=== PATIENT | female | born 1995 | race Caucasian/White ===

== ENCOUNTER 2023-12-22 15:27 | Emergency (ER) | payer BC, SELFPAY ==
[2023-12-22 15:31] VITALS: BP 126/77; PULSE 89; RESP 18; TEMP 36.5; O2SAT 98; BMI 26.5
[2023-12-22 15:44] LABS: Appearance Urine Cloudy (Clear); Bilirubin Urine Negative (Negative); Blood Urine 3+ (Negative); Color Urine Yellow (Yellow); Glucose Urine Negative (Negative); Ketones Urine Trace (Negative); Leukocyte Esterase Urine 3+ (Negative); Nitrite Urine Negative (Negative); Protein Urine 2+ (Negative); Specific Gravity Urine 1.015 (1.000-1.030); Urobilinogen Urine 0.2 (0.2-1.0)
[2023-12-22 15:54] LABS: Bacteria Urine Moderate; RBC Urine 25-50 (0-2); Squamous Epithelial Cell Urine Few (None-Few); WBC Urine 25-50 (0-5)
[2023-12-22 15:56] LABS: Ur HCG Qualitative* Negative (Negative)
[2023-12-22] MEDS: KETOROLAC 15 MG/ML inj IVP (16:58)
[2023-12-22] MEDS: cefTRIAXone 1 GM in 0.9 % SODIUM CHLORIDE Mini-bag 100 ML IVPB (16:59)
[2023-12-22 17:04] LABS: Basophils Absolute Auto 0.03 K/uL (0.00-0.30); Basophils Percent Auto 0.3 % (0.0-3.0); Eosinophils Absolute Auto 0.05 K/uL (0.00-0.50); Eosinophils Percent Auto 0.5 % (0.0-7.0); Hematocrit 44.8 % (33.0-51.0); Hemoglobin* 14.7 gm/dL (12.0-16.0); Immature Granulocytes Abs Auto 0.01 K/uL (0.00-0.30); Immature Granulocytes Pct Auto 0.1 %; Mean Corpuscular HGB Conc 33 gm/dL (32-36); Mean Corpuscular Hemoglobin 30 pg (26-34); Mean Corpuscular Volume 93 fL (80-100); Monocytes Percent Auto 7.8 % (0.0-11.0); Neutrophils Percent Auto 78.3 % (42.0-72.0); Platelet Count* 226 K/uL (140-440); RDW Coefficient of Variation % 12.2 % (11.5-15.5); Red Blood Count 4.83 m/uL (4.00-5.20); White Blood Count* 10.22 K/uL (4.50-11.00)
[2023-12-22 17:05] VITALS: BP 107/63; PULSE 95; O2SAT 98
[2023-12-22 17:06] LABS: Slide Review Reflex No
[2023-12-22 17:15] LABS: Chloride* 100 mmol/L (96-114); Sodium* 139 mmol/L (135-149)
[2023-12-22 17:16] LABS: Potassium* 3.8 mmol/L (3.6-5.1)
[2023-12-22 17:18] LABS: Creatinine* 0.8 mg/dL (0.5-1.5); Est. Creatinine Clearance* 114.93; Estimated Glomerular Filt Rate 102 ml/min
[2023-12-22 17:19] LABS: Anion Gap 16 mEq/L (7-15); Blood Urea Nitrogen* 12 mg/dL (5-24); Calcium* 9.9 mg/dL (8.4-10.6); Carbon Dioxide* 23 mmol/L (20-32); Glucose* 98 mg/dL (60-115)
--- OUTSIDE RECORDS SUMMARY | 2023-12-22 17:20 | XMS_ITS | Clinical Summary ---
Author Name Unknown Organization [employer] Address [place], [place] [address] Care Team Providers Care Personal Lines Agent Name Role Phone Sander Diamond MD Primary Care Provider [phone] Allergies No known active allergies Medications Medication Sig Dispensed Refills Start Date End Date Status sertraline (ZOLOFT) 100 mg tabletIndications:A nxiety Take 1 Tablet (100 mg) by mouth once daily. 90 Tablet 3 12/12/2022 Active norgestrel-ethinyl estradiol, 0.3-30 mg-mcg, (Low-Ogestrel) 0.3-30 mg-mcg tabletIndications:U ses contraception TAKE 1 TABLET BY MOUTH EVERY DAY 84 Tablet 0 11/26/2023 Active norgestrel-ethinyl estradiol, 0.3-30 mg-mcg, (Low-Ogestrel) 0.3-30 mg-mcg tabletIndications:U ses contraception Take 1 Tablet by mouth once daily. 84 Tablet 3 12/12/2022 11/26/2023 Discontinued Active Problems Problem Noted Date Diagnosed Date Pap smear for cervical cancer screening 12/29/19 23 Overview: 11/2022 NIL/HPV Negative Plan: Pap and HPV due 11/2027 Resolved Problems Problem Noted Date Diagnosed Date Resolved Date Supervision of normal first , antepartum 08/27/2017 03/25/2018 Overview: Estimated Date of Delivery: 01/31/18 Patient's last menstrual period was 04/26/2017 (exact date). Last Tdap- 12/07/2017 Last Flu vaccine- 08/27/17 No Known Allergies Obstetric History T0 L0 SAB0 TAB0 Ectopic0 Multiple0 Live Births0 # Outcome Date GA Lbr Franc/2nd Weight Sex Delivery Anes PTL Lv 1 Current Component Latest Ref Rng & Units 06/18/2017 06/18/2017 06/18/2017 8:48 AM 8:48 AM 8:48 AM COLOR Yellow Color CLARITY Clear Clarity SPECIFIC GRAVITY,URINE 1.010, 1.015, 1.020, 1.025 PH,URINE 6.0, 7.0, 8.0, 5.5, 6.5, 7.5, 8.5 UROBILINOGEN,QUALITATIVE Normal EU/dl PROTEIN, URINE Negative mg/dL GLUCOSE, URINE Negative mg/dL KETONES,URINE Negative mg/dL BILIRUBIN,URINE Negative OCCULT BLOOD,URINE Negative NITRITE Negative LEUKOCYTE ESTERASE Negative ANTIBODY SCREEN Negative Negative SPECIMEN EXPIRATION DATE/TIME 06/21/17 23:59 HEMOGLOBIN 12.0 - 16.0 g/dL 12.5 MCV 80 - 100 fL 93 RUBELLA IGG ANTIBODY Positive 2.61 HEMOGLOBIN A1C SCREENING <6.4 % 5.2 ABORH O Rh Positive TREPONEMA PALLIDUM Negative Negative Culture Component Latest Ref Rng & Units 06/18/2017 8:50 AM COLOR Yellow Color Yellow CLARITY Clear Clarity Clear SPECIFIC GRAVITY,URINE 1.010, 1.015, 1.020, 1.025 1.020 PH,URINE 6.0, 7.0, 8.0, 5.5, 6.5, 7.5, 8.5 7.0 UROBILINOGEN,QUALITATIVE Normal EU/dl Normal PROTEIN, URINE Negative mg/dL Negative GLUCOSE, URINE Negative mg/dL Negative KETONES,URINE Negative mg/dL Negative BILIRUBIN,URINE Negative Negative OCCULT BLOOD,URINE Negative Negative NITRITE Negative Negative LEUKOCYTE ESTERASE Negative Negative ANTIBODY SCREEN Negative SPECIMEN EXPIRATION DATE/TIME HEMOGLOBIN 12.0 - 16.0 g/dL MCV 80 - 100 fL RUBELLA IGG ANTIBODY HEMOGLOBIN A1C SCREENING <6.4 % ABORH TREPONEMA PALLIDUM Negative Culture No growth (<1,000 CFU/mL) Component Latest Ref Rng & Units 01/04/2018 Culture No Group B Streptococcus isolated. Past Medical History: Diagnosis Date ? ? Other acne 01/28/2013 Past Surgical History: Procedure Laterality Date ? ? NO PAST SURGERIES No data on file. 1st Problems (from 06/18/17 to present) No problems associated with this episode. AUGUSTINE Santana.....08/27/2017 2:28 PM Other acne 01/28/2013 03/25/2018 Encounters Date Type Department Care Team Description 11/24/2023 Refill [facility] [address] [place] [address] Sander Diamond MD Refill Request (Low-ogestrel) from Last 3 Months Immunizations Name Administration Dates Next Due AMB Influenza, IIV4 PF (=>6 mos Flulaval,Fluzone Fluarix)(Flu Clinic Only) 08/26/2019 DTaP 03/05/1998, 4,1993,06/07,1993 Hepatitis A (Peds) 08/08/2012,01/17/2012 Hepatitis B (Adult) 07/03/2005,04/28/1998 Hepatitis B (Peds) 03/05/1998 Hib Conjugate, Unspecified 05/09/1994,,1993,04/07 Human Papilloma Virus Vaccine 08/08/2012, 012,01/17/2012 Influenza, IIV3 (Age >=3 years) 06/27/2012 Influenza, IIV4 07/26/2021, 0,07/29/2018,08/27 MMR 03/05/1998,05/09/1994 Meningococcal Vaccine (Menactra) 07/03/2005 Meningococcal, Unspecified 01/17/2012 Polio Virus, Unspecified 03/05/1998,08/19,1993,04/07 Td, Preservative Free (age >= 7 Years) 5 Tdap 12/07/2017,02/20/2011 Family History Medical History Relation Name Comments Heart Disease Maternal Aunt MO Heart Disease Maternal Grandfather MO Anesthesia Malignant Hyperthermia No Family History Blood Disease No Family History Relation Name Status Comments Maternal Aunt Maternal Grandfather Social History Tobacco Use Types Packs/Day Years Used Date Smoking Tobacco: Never Smokeless Tobacco: Never Tobacco Cessation:Counseling Given: Yes Alcohol Use Standard Drinks/Week Comments Not Currently 0 (1 standard drink = 0.6 oz pur e alcohol) occ PHQ-2 Answer Date Recorded PHQ-2 TOTAL SCORE 0 12/12/2022 Social Connections Answer Date Recorded Frequency of Communication with Friends and Fami ly Not on file 12/13/2023 Financial Resource Strain Answer Date R ecorded Difficulty of Paying Living Expenses 3 12/12/2022 Difficulty of Paying Living Expenses Not on file 12/12/2022 Food Insecurity Answer Date Recorded Worried About Running Out of Food in the Last Ye ar 1 12/12/2022 Transportation Needs Answer Date Record ed Lack of Transportation (Medical) 1 12/12/2022 Housing Stability Answer Date Recorded Unable to Pay for Housing in the Last Year 1 12/12/2022 Sex and Gender Information Value Date Recorded Sex Assigned at Not on file Gender Identity Not on file Sexual Orientation Not on file Obstetrics History Para Term AB IAB SAB Ectopic Multiple Livin g Live Births 1 1 1 0 0 0 0 0 0 1 1 Date Outcome GA Total Labor Labor/2nd/3rd Weight Sex Delivery Anes PTL Flaquita A1 A5 Name Cl in 01/25 Term 39w 1d M Vag Epidu ral Alayna ng [facility] n Last Filed Vital Signs Vital Sign Reading Time Taken Comments Blood Pressure 116/73 12/12/2022 8:29 AM [employer] Pulse 103 12/12/2022 8:29 AM [employer] Temperature 36.8 ??C (98.3 ??F) 03/13/2022 7:43 AM CD T Respiratory Rate 18 02/02/2022 1:35 PM CDT Oxygen Saturation 100% 12/12/2022 8:29 AM [employer] Inhaled Oxygen Concentration - - Weight 85.2 kg (187 lb 14.4 oz) 12/12/2022 8:29 AM [employer] Height 181 cm (5' 11.26) 12/12/2022 8:29 AM [employer] Body Mass Index 26.02 12/12/2022 8:29 AM [employer] Plan of Treatment Health Maintenance Due Date Last Done Comments COVID-19 vaccine series (#1) 1993 Influenza for age 9-49 07/20/2023 , 08/02/2020, 08/26/2019, Additional history exists BMI (ht and wt on same day) for age 18+ 12/12/2023 12/12/2022, 07/26/2021, 06/20/2021, Additional history exists Depression screening for age 12+ 12/12/2023 12/12/2022, 07/26/2021, 06/20/2021, Additional history exists Tetanus booster 12/07/2027 12/07/2017, 04/0 02/2011, 07/03/2005 Pap test for age 21-65 12/12/2027 , 12/12/2022, 01/13/2019, Additional history exists HIV for age 15-65 Completed 10/29/2017 Tdap Completed 12/07/2017, 02/20/2011 Hepatitis C screening for age 18-79 Completed 12/12/2022 Pneumococcal series for age 6-64 Aged Out No longer eligible based on patient's age to complete this topic Additional Health Concerns Infection Onset Date Last Indicated CLOSTRIDIUM DIFFICILE 02/02/2022 02/02/2022 Care Teams Personal Lines Agent Relationship Specialty Start Date End Date Sander Diamond MD [address] [place] [address] PCP - General Family Practice 05/18/17
--- NOTE | 2023-12-22 20:13 | ED.GENADULT ---
HPI - General Adult General Chief complaint: Abdominal Pain Stated complaint: Abdominal/back pain-signs of bladder infection Time Seen by Provider: 12/22/23 15:35 History of Present Illness HPI narrative: This is a pleasant 28-year-old female with a past medical history of occasional UTI, anxiety(on Zoloft)), who presents to the ER today for dysuria, lower abdominal pain, and low back pain. She has noted symptoms of urinary dysuria and urgency ongoing for the past 2 or 3 days. She had taken some azo couple of days ago which helped ease some of the dysuria. As she expected, the azo made her urine turned dark colored. She has not noted any other blood in her urine. No fever or chills. Overnight last night and this morning symptoms worsen and she is now having more significant pain across her lower pelvis and some pain radiating into both sides of her lower back (indicates her lower back just above the iliac wings, not really as high as the flanks). She is feeling a bit weaker than normal. She has also had a couple of loose stools. She has been nauseous but no vomiting. No fevers. She took ibuprofen for pain this morning at about 9:00 a.m.. However this afternoon pain got much worse. Related Data Home Medications Medication Instructions Recorded Confirmed norgestrel 0.3 mg-ethinyl 1 tab PO DAILY 05/06/23 11/05/23 estradiol 30 mcg tablet (Low-Ogestrel (28)) sertraline 100 mg tablet 100 mg PO DAILY 05/06/23 11/05/23 Previous Rx's Medication Instructions Recorded cephalexin 500 mg capsule 500 mg PO TID #21 caps 12/22/23 Allergies Allergy/AdvReac Type Severity Reaction Status Date / Time No Known Drug Allergies Allergy Verified 11/05/23 09:22 [facility] Medical History (Updated 12/22/23 @ 17:56 by Keshav Bueno MD) URI (upper respiratory infection) ?J06.9 - Acute upper respiratory infection, unspecified (ICD-10) Social History Smoking Status: Never smoker How often do you have a drink containing alcohol: never How often do you have six or more drinks on one occasion: Never AUDIT-C Alcohol total score: 0 Non-prescribed substance use: denies use Exam Narrative: Exam Narrative: Constitutional: Appears well-developed and well-nourished. Alert. Conversant. Non toxic. HENT: Head: Atraumatic. Nose: Nose normal. Mouth/Throat: Oral mucosa is clear and moist. no trismus. Pharynx normal Eyes: Conjunctivae normal. EOM normal. Pupils equal, round, and reactive to light. No scleral icterus. Neck: Normal range of motion. Neck supple. No tracheal deviation present. Cardiovascular: Normal rate, regular rhythm. No gallop. No friction rub. No murmur heard. Symmetric radial artery pulses Pulmonary/Chest: Effort normal. No stridor. No respiratory distress. No wheezes. No rales. No rhonchi . No tenderness. Abdominal: Soft. Bowel sounds normal. No distension. No mass. Suprapubic> right lower quadrant and left lower quadrant tenderness. No rebound. No guarding. No Rovsing sign. Musculoskeletal: No midline lumbar spine tenderness. Mild bilateral tenderness at the CVA or just below it on both lumbar paraspinous muscles. RUE: Normal range of motion. No tenderness. No deformity LUE: Normal range of motion. No tenderness. No deformity RLE: Normal range of motion. No edema. No tenderness. No deformity LLE: Normal range of motion. No edema. No tenderness. No deformity Neurological: Alert and oriented to person, place, and time. Normal strength. CN II-VII intact. No sensory deficit. GCS eye subscore is 4. GCS verbal subscore is 5. GCS motor subscore is 6. Normal coordination Skin: Skin is warm and dry. No rash noted. No pallor. Normal capillary refill. Psychiatric: Normal mood. Normal affect. Const: Vital Signs, click to edit/add: Vital Signs - 24 hr 12/22/23 15:31 12/22/23 17:05 Temperature 97.7 F Pulse Rate [Right Pulse Oximeter] 89 95 Respiratory Rate 18 Blood Pressure [Ri ght Upper Arm] 126/77 107/63 Pulse Oximetry 98 98 Oxygen Delivery Me thod Room Air Room Air Course Vital Signs Vital signs: Initial Vital Signs Temperature 97.7 F 12/22/23 15:31 Temperature Source Temporal Artery Scan 12/22/23 15:31 Pulse Rate 89 12/22/23 15:31 Respiratory Rate 18 12/22/23 15:31 Blood Pressure 126/77 12/22/23 15:31 Blood Pressure Mean 93 12/22/23 15:31 Blood Pressure Position Sitting 12/22/23 15:31 Pulse Oximetry 98 12/22/23 15:31 Oxygen Delivery Method Room Air 12/22/23 15:31 Vital Signs Temperature 97.7 F 12/22/23 15:31 Pulse Rate 89 12/22/23 15:31 Respiratory Rate 18 12/22/23 15:31 Blood Pressure 126/77 12/22/23 15:31 Pulse Oximetry 98 12/22/23 15:31 Oxygen Delivery Method Room Air 12/22/23 15:31 Temperature 97.7 F 12/22/23 15:31 Pulse Rate 95 12/22/23 17:05 Respiratory Rate 18 12/22/23 15:31 Blood Pressure 107/63 12/22/23 17:05 Pulse Oximetry 98 12/22/23 17:05 Oxygen Delivery Method Room Air 12/22/23 17:05 Medications Administered Medications: Discontinued Medications Generic Name Dose Route Start Last Admin Trade Name Freq PRN Reason Stop Dose Admin Ceftriaxone Sodium 1 gm/ 100 mls @ 200 mls/hr 12/22/23 16:27 12/22/23 17:43 Sodium Chloride IVPB 12/22/23 16:28 Infused ONCE ONE Infusion Ketorolac Tromethamine 15 mg 12/22/23 16:27 12/22/23 16:58 Ketorolac 15 Mg/Ml Inj IVP 12/22/23 16:28 15 mg ONCE ONE Administration Ondansetron HCl 4 mg 12/22/23 16:27 12/22/23 17:44 Ondansetron 2 Mg/Ml Inj IVP 12/22/23 16:28 Not Given ONCE ONE Medical Decision Making [facility] Narrative Medical decision making narrative: Presented to the Emergency Department with urinary symptoms associated with lower abdominal pain and bilateral low back pain. Urinary symptoms are concerning for possible UTI. Urinalysis abnormal with pyuria and hematuria indicative of infection. Fortunately white count is normal. Blood pressure is stable. With the worsening pain in our radiation to the back, concern is for possible development of pyelonephritis. However the back pain is not really in the classic CVA location so I am not definitively confident that symptoms represent pyelo. Differential would also include kidney stone but without any unilateral flank pain, I think stone is low probability. Differential would also include other causes of lower abdominal pain such as Appendicitis, Bowel Obstruction, Diverticulitis, UTI, kidney stone, Enteritis/Colitis, ovarian pathology, amongst many other etiologies. Laboratory testing does not reveal a cause for the patient's pain and is reassuring. negative. Urinalysis abnormal suggest UTI. Decided to hold off on CT imaging given low probability for surgical pathology and risk of radiation exposure in a young patient. No life threatening cause or need for emergent surgery or hospital admission is detected today. Treated with Rocephin 1 g IV for urinary tract infection with possible pyelonephritis. She return if she experiences worsening she should return to the ER right away. I discussed the uncertainty about the diagnosis and answered the patient's questions. Abdominal pain return precautions discussed. Lab Data Labs: Lab Results 12/22/23 12/22/23 12/22/23 Range/Units 15:36 15:46 16:50 WBC 10.22 (4.50-11.00) K/uL RBC 4.83 (4.00-5.20) m/uL Hgb 14.7 (12.0-16.0) gm/dL Hct 44.8 (33.0-51.0) % MCV 93 (80-100) fL MCH 30 (26-34) pg MCHC 33 (32-36) gm/dL RDW Coeff of Georgie 12.2 (11.5-15.5) % Plt Count 226 (140-440) K/uL Neut % (Auto) 78.3 H (42.0-72.0) % Lymph % (Auto) 13.0 L (20-44) % Josephine % (Auto) 7.8 (0.0-11.0) % Eos % (Auto) 0.5 (0.0-7.0) % Baso % (Auto) 0.3 (0.0-3.0) % Neut # (Auto) 8.00 H (1.7-7.0) K/uL Lymph # (Auto) 1.30 (0.90-2.90) K/uL Josephine # (Auto) 0.80 (0.00-0.90) K/UL Eos # (Auto) 0.05 (0.00-0.50) K/uL Baso # (Auto) 0.03 (0.00-0.30) K/uL Abs Immat Gran (auto) 0.01 (0.00-0.30) K/uL Imm/Tot Granulo (auto) 0.1 % Sodium 139 (135-149) mmol/L Potassium 3.8 (3.6-5.1) mmol/L Chloride 100 (96-114) mmol/L Carbon Dioxide 23 (20-32) mmol/L Anion Gap 16 H (7-15) mEq/L BUN 12 (5-24) mg/dL Creatinine 0.8 (0.5-1.5) mg/dL Estimated Creat Clear 114.93 Estimated GFR 102 ml/min Glucose 98 (60-115) mg/dL Calcium 9.9 (8.4-10.6) mg/dL Urine Color Yellow (Yellow) Urine Appearance Cloudy A (Clear) Urine pH 6.0 (5.0-8.5) Ur Specific [place] 1.015 (1.000-1.030) Urine Protein 2+ A (Negative) Urine Glucose (UA) Negative (Negative) Urine Ketones Trace A (Negative) Urine Blood 3+ A (Negative) Urine Nitrite Negative (Negative) Urine Bilirubin Negative (Negative) Urine Urobilinogen 0.2 (0.2-1.0) Ur Leukocyte Esterase 3+ A (Negative) Urine RBC 25-50 A (0-2) Urine WBC 25-50 A (0-5) Ur Squamous Epith Cells Few (None-Few) Urine Bacteria Moderate A (None) Urine HCG, Qual Negative (Negative) Discharge Plan Discharge Clinical Impression: Pyelonephritis Patient Disposition: Home, Self-Care Condition: Stable Instructions: Kidney Infection (ED) Additional Instructions: As we discussed, please use ibuprofen or Tylenol needed for pain. Drink plenty of fluids. Take the prescribed antibiotics. Please return to the ER right away if you have worsening symptoms especially worsening pain, high fever, vomiting, weakness, or if you have any other problems. Prescriptions: New cephalexin 500 mg capsule 500 mg PO TID Qty: 21 0RF No Action sertraline 100 mg tablet 100 mg PO DAILY Low-Ogestrel (28) 0.3-30 mg-mcg tablet 1 tab PO DAILY Follow Up/Referrals: Sander Diamond MD [Primary Care Provider] - Stand Alone Forms: [employer] Info Instructions
== END 2023-12-22 18:04 | disposition home or self-care (01) ==
PROVIDERS: Emergency Provider Emergency Medicine; PCP Surgery
DX: N12 Tubulo-interstitial nephritis, not specified as acute or chronic (principal)
CPT/HCPCS: 36415; 80048; 81001; 81025; 85025; 87086; 87186; 96365; 96375; 99283; 99284; J0696; J1885